=== PATIENT | female | born 1990 | race Two or more races ===

== ENCOUNTER → 2017-09-01 | Outpatient (CLI) | payer MEDICAID ==
--- NOTE | 2017-09-01 13:28 | RADIOLOGY REPORT (SQ) ---
EXAM DESCRIPTION: LUMBAR SPINE COMPLETE COMPLETED DATE/TIME: 09/01/2017 10:03 am REASON FOR STUDY: LOW BACK PAIN M54.5 LOW BACK PAIN COMPARISON: None. NUMBER OF VIEWS: Five views including obliques. TECHNIQUE: AP, lateral, oblique, and sacral radiographic images acquired of the lumbar spine. LIMITATIONS: None. FINDINGS: MINERALIZATION: Normal. SEGMENTATION: Normal. No transitional anatomy. ALIGNMENT: Normal. VERTEBRAE: Maintained height. No fracture or worrisome bone lesion. DISCS: Preserved height. No significant osteophytes or end plate irregularity. POSTERIOR ELEMENTS: Pedicles and facets are intact. No pars defect or posterior arch defects. HARDWARE: None in the spine. PARASPINAL SOFT TISSUES: Normal. PELVIS: Intact as visualized. No fractures or worrisome bone lesions. SI joints intact. OTHER: No other significant finding. IMPRESSION: NORMAL 5 VIEW LUMBAR SPINE. TECHNICAL DOCUMENTATION: JOB ID: [id number] [employer]- All Rights Reserved Reading location - IP/workstation name: [email or web address]
== END ==
LOC: OD 09:49
PROVIDERS: ATTEND Physician Assistant
DX: M54.5 Low back pain (principal)
CPT/HCPCS: 72110

== ENCOUNTER → 2020-03-24 | Outpatient (CLI) | payer SELFPAY ==
--- NOTE | 2020-03-24 14:43 | RADIOLOGY REPORT (SQ) ---
EXAM DESCRIPTION: U/S OB 14+ TRNABD 1GES W/O DOP IMAGES COMPLETED DATE/TIME: 03/24/2020 2:32 pm REASON FOR STUDY: Z34.83 ENCOUNTER FOR SUPRVSN OF NORMAL , THIRD TRIMESTER Z34.83 ENCOUNTE R FOR SUPRVSN OF NORMAL , THIRD TRIM COMPARISON: 2014 TECHNIQUE: Static and Dynamic grayscale imaging performed of gravid uterus using transabdominal appr oach. Additional selected color Doppler and spectral images recorded. All stored on PACS. LIMITATIONS: Limited anatomical survey. FINDINGS: FETUSES SEEN:1 EGA: 38 weeks 5 days Calculated using BPD,FL,HC,AC documented on images. No discrepancy with clinica l dates. ROBBIN: 04/02/2020 EFW: 7 lb 13 oz PERCENTILE: 61st SHIRA: 13.4 cm PLACENTA: Fundal grade 1 PRESENTATION: Cephalic. ANATOMY: HEART RATE: 145 beats per minute. FOUR CHAMBER HEART: Visualized. THREE VESSEL CORD: Yes. CORD INSERTION: Not seen. KIDNEYS AND BLADDER: Visualized. Appear normal. STOMACH: Visualized. Appears normal. SPINE: Normal as visualized. BRAIN AND LATERAL VENTRICLES: Poorly seen. OTHER: No other significant finding. MATERNAL ADNEXA: Maternal ovaries not visualized. CERVICAL LENGTH: 2.6 cm. Closed. OTHER: No other significant finding. IMPRESSION: LIVING INTRAUTERINE . ESTIMATED GESTATIONAL AGE 38 weeks 5 days NO VISUALIZED ANOMALIES. Trimester of : Third trimester - 28 weeks to delivery. TECHNICAL DOCUMENTATION: JOB ID: [id number] 2010 [employer]- All Rights Reserved Reading location - IP/workstation name: [email or web address]
== END ==
LOC: RAD 13:43
PROVIDERS: ATTEND Midwife
DX: Z34.83 Encounter for supervision of other normal pregnancy, third trimester (principal); Z3A.38 38 weeks gestation of pregnancy
CPT/HCPCS: 76805

== ENCOUNTER 2020-04-05 08:02 | Inpatient (IN) | payer MEDICAID ==
[2020-04-05] MEDS ORDERED: RINGERS SOLUTION,LACTATED 1,000 ML IV PRN (08:49)
[2020-04-05] MEDS ORDERED: RINGERS SOLUTION,LACTATED 1,000 ML IV ONE (08:49)
[2020-04-05] MEDS ORDERED: OXYTOCIN/0.9 % SODIUM CHLORIDE 30 UNIT/500 ML RTUINJ IV PRN ×2 (08:52→23:14)
[2020-04-05] MEDS ORDERED: LIDOCAINE 1% INJ-PF (10 MG/ML) 30 ML SDV ONE (09:14)
[2020-04-05] MEDS ORDERED: MISOPROSTOL 0.2 MG TABLET ONE (09:14)
[2020-04-05] MEDS ORDERED: OXYTOCIN/0.9 % SODIUM CHLORIDE 30 UNIT/500 ML RTUINJ ONE (09:14)
[2020-04-05] MEDS ORDERED: OXYTOCIN 10 UNIT/ML VIAL ONE (09:14)
[2020-04-05 09:18] LABS: ABSOLUTE EOSINOPHILS # (AUTO) 0.2 10^3/uL (0.0-0.6); ABSOLUTE LYMPHOCYTES (AUTO) 2.1 10^3/uL (0.5-4.7); ABSOLUTE MONOCYTES (AUTO) 0.4 10^3/uL (0.1-1.4); ABSOLUTE NEUT (AUTO) 5.4 10^3/uL (1.7-8.2); BASOPHILS % (AUTO) 0.4 % (0-2); EOSINOPHILS % (AUTO) 1.9 % (0-6); HEMATOCRIT 34.7 % (36.0-47.0); HEMOGLOBIN 12.3 g/dL (12.0-15.5); LYMPHOCYTES % (AUTO) 25.8 % (13-45); MEAN CORPUSCULAR HEMOGLOBIN 30.7 pg (27.0-33.4); MEAN CORPUSCULAR HGB CONC 35.4 g/dL (32.0-36.0); MEAN CORPUSCULAR VOLUME 87 fl (80-97); MONOCYTES % (AUTO) 5.3 % (3-13); PLATELET COUNT 249 10^3/uL (150-450); RED BLOOD COUNT 4.01 10^6/uL (3.72-5.28); RED CELL DISTRIBUTION WIDTH 14.2 % (11.5-14.0); SEGMENTED NEUTROPHILS % (AUTO) 66.6 % (42-78); TOTAL CELLS COUNTED % (AUTO) 100 %; WHITE BLOOD COUNT 8.1 10^3/uL (4.0-10.5)
[2020-04-05 09:23] LABS: APPEARANCE,URINE CLOUDY; BILIRUBIN,URINE NEGATIVE (NEGATIVE); COLOR,URINE AMBER; GLUCOSE, URINE NEGATIVE (NEGATIVE); KETONES,URINE TRACE mg/dL (NEGATIVE); LEUKOCYTE ESTERASE,URINE LARGE (NEGATIVE); NITRITE,URINE NEGATIVE (NEGATIVE); PROTEIN,URINE 30 mg/dL (NEGATIVE)
--- NOTE | 2020-04-05 09:24 | Admission Physical ---
Datetime Report Generated by CPN: 04/05/2020 09:24 CURRENT ADMISSION Indication for Induction: Post Dates Admit Impression : Postterm, Intrauterine ; No Active Labor Admit Plan: Admit to Unit; Initiate Labor Induction Protocol ALLERGIES Medication Allergies: No Medication Allergies: No Known Allergies (04/05/2020) Latex: No Latex Allergies OBSTETRICAL HISTORY : 3 Para: 1 Term: 1 : 0 SAB: 0 IAB: 1 Ectopic: 0 Livin Cesareans: 0 VBACs: 0 Multiple Births: 0 Gestational Diabetes: No Rh Sensitization: No Incompetent Cervix: No MAXIMINO: No Infertility: No ART Treatment: No Uterine Anomaly: No IUGR: No Hx Previous C/S: No Macrosomia: No Hx Loss/Stillborn: No PIH: No Hx : No Placenta Previa/Abruption: No Depression/PP Depression: No PTL/PROM: No Post Hemorrhage: Yes Current Procedures: Ultrasound Obstetrical History Comments: G1- Induced 2004 G2- , PPH with retained placenta, Girl 2015 G3- Current SEE RECORDS Alcohol: No Marijuana : No Cocaine: No Other Illicit Drugs: No Cigarettes: Never Smoker. [id number] MEDICAL HISTORY Diabetes: No Blood Transfusion: Yes Pulmonary Disease (Asthma, TB): No Breast Disease: No Hypertension: No Machine Fixer Surgery: No Heart Disease: No Hosp/Surgery: Yes Autoimmune Disorder: No Anesthetic Complications: No Kidney Disease: No Abnormal Pap Smear: No Neuro/Epilepsy: No Psychiatric Disorders: No Other Medical Diseases: No Hepatitis/Liver Disease: No Significant Family History: No Varicosities/Phlebitis: No Trauma/Violence : No Thyroid Dysfunction: No Medical History Comments: HX of blood transfusion with PPH INFECTIOUS HISTORY Gonorrhea: No Genital Herpes: No Chlamydia: No Tuberculosis: No Syphilis: No Hepatitis: No HIV/AIDS Exposure: No Rash or Viral Illness: No HPV: No PHYSICAL EXAM General: Normal HEENT: Normal Neurologic: Normal Thyroid: Normal Heart: Normal Lungs: Normal Breast: Normal Back: Normal Abdomen: Normal Genitourinary Exam: Normal Extremities: Normal DTRs: Normal Pelvic Type: Adequate Vital Signs: Reviewed MEMBRANES Membranes: Intact FETUS A Monitoring: External US FHR- Baseline: 140 Variability: Moderate 6-25bpm Accelerations: 15X15 Decelerations: None FHR Category: Category I Admit Comment: at 41 wks admitted this morning for IOL. Pt doing well, no complaints. States was 1-2 [facility] Plan IV Pitocin, then AROM w/ regular contraction pattern. Pt plans for natural labor w/out epidural. GBS negative. Baby feels Vtx via Leap[place]. EFW 8 pounds. Attending MD is Dr Pérez today, agrees w/ plan of care PLANS FOR LABOR AND DELIVERY Labor and Delivery: None Pain Management: None Feeding Preference: Breast Benefit of Breast Feed Discussed: Yes Circumcision: Yes INFORMED CONSENT Assignment: Elisabeth Pérez MD Signature: with User ID: Ryan : with User ID: Ryan
[2020-04-05 09:47] LABS: URINE AMPHETAMINES SCREEN NEGATIVE; URINE BARBITURATES SCREEN NEGATIVE; URINE BENZODIAZEPINES SCREEN NEGATIVE; URINE COCAINE SCREEN NEGATIVE; URINE MARIJUANA (THC) SCREEN NEGATIVE; URINE METHADONE SCREEN NEGATIVE; URINE PHENCYCLIDINE SCREEN NEGATIVE
--- NOTE | 2020-04-05 14:37 | L&D Progress Notes ---
PROGRESS NOTES Datetime Report Generated by CPN: 04/05/2020 14:37 PROGRESS NOTE Impression: Normal Progression of Labor Procedures: Artificial ROM; Sterile Vag Exam Plan: Continue Present Management; Induction Vital Signs : Reviewed; Within Normal Limits Comment: Pt doing well, Pitocin infusing. VE 3/70/-1, AROM w/ clear fluid, scantly bloodtinged. Pt may have an epidural if she desires. Position changes encouraged. Attending MD is Dr Pérez, updated on pt status LAST VAGINAL EXAM-NURSING Nursing Exam Dilitation: 3.0 Nursing Exam Effacement: 70 Nursing Exam Station: -1 MEMBRANES Membranes: Ruptured Amniotic Fluid Color: Clear FETUS A FHR - Baseline: 140 Monitoring: External US Variability: Moderate 6-25bpm Accelerations: 15X15 Decelerations: None FHR Category: Category I SIGNATURE SIGNATURE: [id number];13,[id number] Assignment: Elisabeth Pérez MD Signature: with User ID: [email or web address] : with User ID: Ryan
[2020-04-05] MEDS ORDERED: PROMETHAZINE HCL INJ 25 MG/1 ML VIAL ONE (18:25)
[2020-04-05] MEDS ORDERED: NALBUPHINE HCL INJ 10 MG/1 ML AMPULE ONE (18:25)
[2020-04-05] MEDS ORDERED: NALBUPHINE HCL INJ 10 MG/1 ML AMPULE INJ ONE (18:30)
[2020-04-05] MEDS ORDERED: PROMETHAZINE HCL INJ 25 MG/1 ML VIAL IV ONE (18:30)
[2020-04-05] MEDS ORDERED: PROMETHAZINE HCL 25 MG TABLET PO PRN (23:14)
[2020-04-05] MEDS ORDERED: BENZOCAINE/MENTHOL AEROSOL SPRAY 56 ML TOP PRN (23:14)
[2020-04-05] MEDS ORDERED: DIBUCAINE 1% OINTMENT 28 GM TP PRN (23:14)
[2020-04-05] MEDS ORDERED: MEASLES,MUMPS&RUBELLA VACC/PF 0.5 ML VIAL SUBCUT PRN (23:14)
[2020-04-05] MEDS ORDERED: GLYCERIN/WITCH HAZEL LEAF 1 EACH MED..WIPE TP PRN (23:14)
[2020-04-05] MEDS ORDERED: ZOLPIDEM TARTRATE 5 MG TABLET PO PRN (23:14)
[2020-04-05] MEDS ORDERED: NA PHOS,M-B/NA PHOS,DI-BA (ADULT) 133 ML ENEMA PR PRN (23:14)
[2020-04-05] MEDS ORDERED: DIPH/PERTUSS(ACELL)/TETANUS VAC/PF 0.5 ML SYR (>=10YO) IM PRN (23:14)
[2020-04-05] MEDS ORDERED: MAGNESIUM HYDROXIDE SUSP 30 ML UDCUP PO PRN (23:14)
[2020-04-05] MEDS ORDERED: PROMETHAZINE HCL INJ 25 MG/1 ML VIAL IV PRN (23:14)
[2020-04-05] MEDS ORDERED: ACETAMINOPHEN 325 MG TABLET PO PRN (23:14)
[2020-04-05] MEDS ORDERED: ACETAMINOPHEN WITH CODEINE #3 TABLET PO PRN ×2 (23:14)
[2020-04-05] MEDS ORDERED: PROMETHAZINE HCL 25 MG SUPP.RECT PR PRN (23:14)
[2020-04-05] MEDS ORDERED: DIPHENHYDRAMINE HCL 25 MG CAPSULE PO PRN (23:14)
[2020-04-05] MEDS ORDERED: PSEUDOEPHEDRINE HCL 30 MG TABLET PO PRN (23:14)
[2020-04-05] MEDS ORDERED: ACETAMINOPHEN 650 MG SUPP.RECT PR PRN (23:14)
[2020-04-05] MEDS ORDERED: ACETAMINOPHEN WITH CODEINE #3 TABLET ONE (23:54)
--- NOTE | 2020-04-06 00:40 | Birth Certificate Data ---
Cert Data Datetime Report Generated by PATRIC: 04/06/2020 00:40 CERTIFICATE DATA 47a. Care: Yes (04/05/2020 08:42:Teresita Pineda RN) 47b. Date of First Visit: 09/29/2019 00:00 (04/05/2020 08:42:Teresita Pineda RN) 47c. Date of Last Visit: 04/03/2020 00:00 (04/05/2020 08:42:Teresita Pineda RN) 47d. Number of Visits: 11 (04/05/2020 08:42:Teresita Pineda RN) 48a. Number of Prev Live Births: 1 (04/05/2020 08:42:Teresita Pineda RN) 48b. Now Livin (04/05/2020 08:42:Teresita Pineda RN) 48c. Live Births Now : 0 (04/05/2020 08:42:QS system process) 48d. Date of Last Live : 06/30/2015 00:00 (04/05/2020 08:42:Teresita Pineda RN) 48e. Losses: 1 (04/05/2020 08:42:Teresita Pineda RN) 48f. Date of Last Preg Loss: 11/28/2004 00:00 (04/05/2020 08:42:Teresita Pineda RN) RISK FACTORS IN THIS 49a. Diabetes: No (04/05/2020 08:42:Teresita Pineda RN) 49b. Hypertension: No (04/05/2020 08:42:Teresita Pineda RN) 49c. Previous Births: 0 (04/05/2020 08:42:Teresita Pineda RN) 49d. Stillborns: No (04/05/2020 08:42:Teresita Pineda RN) 49d. IUGR: No (04/05/2020 08:42:Teresita Pineda RN) 49e. Infertility Treatment: No (04/05/2020 08:42:Teresita Pineda RN) 49f. Previous Cesareans: 0 (04/05/2020 08:42:Teresita Pineda RN) Mother's Height 50b. Height Inches: 62 (04/05/2020 13:51:QS system process) Mother's Weight 51a. Pre- Weight (lbs): 148 (04/05/2020 08:42:Teresita Pineda RN) 51b. Weight at Delivery (lbs): 172 (04/05/2020 13:51:QS system process) 52. Dt Last Normal Menses Began: 06/26/2019 00:00 (04/05/2020 08:42:Teresita Pineda RN) Infections Present/Treated 53a. Gonorrhea: No (04/05/2020 08:42:Teresita Pineda RN) Results this Hospital Visit : Negative (04/05/2020 08:42:Smiley Mckeon RN) 53b. Syphilis: No (04/05/2020 08:42:Teresita Pineda RN) 53c. Chlamydia: No (04/05/2020 08:42:Teresita Pineda RN) Results this Hospital Visit: Negative (Annotations: Data stored by [facility] on behalf of user) (04/05/2020 08:42:Smiley Mckeon RN) 53d. Hepatitis B: No (04/05/2020 08:42:Teresita Pineda RN) Results this Hospital Visit: Negative (04/05/2020 08:42:Teresita Pineda RN) 53e. Hepatitis C: Negative (04/05/2020 08:42:Teresita Pineda RN) 53h. Mother Tested for HBsAG: Yes (04/05/2020 08:42:Teresita Pineda RN) 53i. Date Tested: 03/22/2020 00:00 (04/05/2020 08:42:Teresita Pineda RN) 53j. Test Result: Negative (04/05/2020 08:42:Teresita Pineda RN) Obstetric Procedures 54a, b, c. Obstetric Procedures: Ultrasound (04/05/2020 08:42:Teresita Pineda RN) Cigarette Smoking Cigarette Smoking: Never Smoker. [id number] (04/05/2020 08:42:Teresita Pineda RN) 55a. 3 Months Before Preg - Ci (04/05/2020 08:42:Teresita Pineda RN) 55a. Packs: 0 (04/05/2020 08:42:Teresita Pineda RN) 55b. 1st Trimester of Preg- Ci (04/05/2020 08:42:Teresita Pineda RN) 55b. Packs: 0 (04/05/2020 08:42:Teresita Pineda RN) 55c. 2nd Trimester of Preg- Ci (04/05/2020 08:42:Teresita Pineda RN) 55c. Packs: 0 (04/05/2020 08:42:eTresita Pineda RN) 55d. 3rd Trimester of Preg- Ci (04/05/2020 08:42:Teresita Pineda RN) 55d. Packs: 0 (04/05/2020 08:42:Teresita Pineda RN) Onset of Labor 56a. PROM >12 Hrs: 8.57 (04/05/2020 08:42:QS system process) 56b. Precipitous Labor <3 Hrs: 13 (04/05/2020 08:42:QS system process) 56c. Prolonged Labor > 20 Hrs: 13 (04/05/2020 08:42:QS system process) 57a. Induction of Labor: Induction (04/05/2020 08:42:Lisa Valenzeula RN) 57c. Non-Vertex Presentation A: Vertex (04/05/2020 08:42:Peyton Hurd RN) 57d. Steroids - Lung Mat: None (04/05/2020 08:42:Lisa Valenzuela RN) 57d. Steroids - Lung Mat: Not Applicable (04/05/2020 08:42:Lisa Valenzuela RN) 57f. Mat [place] or Temp >100.4: 98.6 (04/05/2020 08:42:Lisa Valenzuela RN) 57g. Moderate/Heavy Meconium: Clear (04/05/2020 14:29:Teresita Pineda RN) 57h. Intolerance of Labor: N/A (04/05/2020 08:42:Lisa Valenzuela RN) : N/A (04/05/2020 08:42:Lisa Valenzuela RN) 57i. Epidural/Spinal Anesthesia: None (04/05/2020 08:42:Lisa Valenzuela RN) Method of Delivery 58a. Forceps - Unsuccessful A: N/A (04/05/2020 08:42:Peyton Hurd RN) 58b. Vacuum - Unsuccessful A: N/A (04/05/2020 08:42:Peyton Hurd RN) 58c. Presentation at 58c. Presentation at - A : Vertex (04/05/2020 08:42:Peyton Hurd RN) 58c. Presentation at - A : N/A (04/05/2020 08:42:Lisa Valenzuela RN) 58c. Presentation at - A : Cephalic (04/05/2020 18:17:Teresita Pineda RN) Final Route and Method of Del 58d. Baby A Route/Delivery: Vaginal (04/05/2020 23:03:Lisa Valenzuela RN) 58e. Trial of Labor Attempted: No (04/05/2020 08:42:Lisa Valenzuela RN) 58e. Trial of Labor Attempted A: N/A (04/05/2020 08:42:Lisa Valenzuela RN) 58e. Trial of Labor Attempted B: N/A (04/05/2020 08:42:Lisa Valenzuela RN) Maternal Morbidity 59b. 3rd or 4th Degree Lacs: None (04/05/2020 08:42:[facility] Birthweight Baby A: 3612 (04/05/2020 08:42:Lisa Valenzuela RN) 60a. Pounds : 7 (04/05/2020 08:42:QS system process) 60b. Ounces: 15 (04/05/2020 08:42:QS system process) 61. GA at Delivery Baby A: 40.6 (04/05/2020 08:42:Lisa Valenzuela RN) : Full Term- 39- 40.6 Weeks (04/05/2020 08:42:QS system process) 62a. 5 Minute Baby A: 9 (04/05/2020 08:42:QS system process)
--- NOTE | 2020-04-06 00:40 | Delivery Summary ---
Del Sum A-C Datetime Report Generated by CPN: 04/06/2020 00:40 DELIVERY PERSONNEL DELIVERY PERSONNEL: [id number] Delivery Doctor:: Elisabeth Pérez MD Labor and Delivery Nurse:: Lisa Valenzuela RN Nursery Nurse:: Cecille Alexander RN Binder Fixer/INSPECTOR MACHINE CUT GLASS: Harini Ross, ST MATERNAL INFORMATION Delivery Anesthesia: None Medications After Delivery: Pitocin 30 Units in 500ml NS/D5W Estimated Blood Loss (ml): 200 Maternal Complications: None LABOR SUMMARY EDC: 03/30/2020 00:00 No. Babies in Womb: 1 Attempted: No Labor Anesthesia: None LABOR INFORMATION Reason for Induction: Post Dates Onset of Labor: 04/05/2020 09:28 Complete Dilatation: 04/05/2020 22:49 Oxytocin: Induction Group B Beta Strep: negative Antibiotics # of Doses: n/a Name of Antibiotic Given: n/a Steroids Given: None Reason Steroids Not Administered: Not Applicable MEMBRANES Membranes Rupture Method: Artificial Rupture of Membranes: 04/05/2020 14:29 Length of Rupture (hr): 8.57 Amniotic Fluid Color: Clear Amniotic Fluid Amount: Scant STAGES OF LABOR Stage 1 hr: 13 Stage 1 min: 21 Stage 2 hr: 0 Stage 2 min: 14 Stage 3 hr: 0 Stage 3 min: 4 Total Time in Labor hr: 13 Total Time in Labor min: 39 VAGINAL DELIVERY Episiotomy: None Laceration #1: None Laceration Extension #1: N/A Laceration Repair: Not Applicable Sponge Count Correct: N/A Sharps Count Correct: N/A CSECTION DELIVERY Primary Indication: N/A Secondary Indication: N/A CSection Urgency: N/A CSection Incidence: N/A Labor: N/A Elective: N/A CSection Incision: N/A Uterine Closure: Double-layer closure BABY A INFORMATION Infant Delivery Date/Time: 04/05/2020 23:03 Method of Delivery: Vaginal Nurse Controlled Delivery: No Born in Route : No : N/A Forceps: N/A Vacuum Extraction: N/A Shoulder Dystocia : No PRESENTATION/POSITION BABY A Presentation: Cephalic Cephalic Presentation: Vertex Vertex Position: Right Occipital Anterior Breech Presentation: N/A PLACENTA INFORMATION BABY A Placenta Delivery Time : 04/05/2020 23:07 Placenta Method of Delivery: Spontaneous Placenta Status: Delivered SCORES BABY A Heart Rate 1 min: >100 bpm Resp Effort 1 min: Good Cry Reflex Irritability 1 min: Cough or Sneeze or Pulls Away Muscle Tone 1 min: Active Motion Color 1 min: Blue/Pale Resuscitation Effort 1 min: Tactile Stimulation SCORE 1 MIN: 8 Heart Rate 5 min: >100 bpm Resp Effort 5 min: Good Cry Reflex Irritability 5 min: Cough or Sneeze or Pulls Away Muscle Tone 5 min: Active Motion Color 5 min: Body [place], Extremities Blue Resuscitation Effort 5 min: Tactile Stimulation SCORE 5 MIN: 9 INFANT INFORMATION BABY A Gestational Age at Delivery: 40.6 Gestational Status: Full Term- 39- 40.6 Weeks Outcome : Liveborn Condition : Stable Infant Sex: Male IDENTIFICATION BABY A Verification Date/Time: 04/05/2020 23:24 ID Band Number: [id number] Mother's Name Verified: Yes RN Verifying : Clem Valenzuela RN/Jean Toth RN WEIGHT/LENGTH BABY A Infant Birthweight (gm): 3612 Infant Weight (lb): 7 Weight (oz): 15 Infant Length (in): 20.50 Length (cm): 52.07 CORD INFORMATION BABY A No. Cord Vessels: 3 Nuchal Cord : N/A Cord Blood Taken: Yes-For Eval (Mom's Blood Type - or O+) Infant Suction: None ASSESSMENT BABY A Complications: None Physical Findings at Delivery: Other Physical Findings- Other: see nursery assessment Respirations: Appears Normal Skin to Skin: Yes Skin to Skin Time (min): 60 Arc Trimmer/ALS Called : No Infant Care By: Cecille Alexander RN Transferred To: Remains with Mother BABY B INFORMATION : N/A SIGNATURES Signature: with User ID: [email or web address]
[2020-04-06] MEDS ORDERED: IBUPROFEN 800 MG TABLET ONE (00:49)
[2020-04-06] MEDS: FAMOTIDINE 20 MG TABLET PO SCH ×3 (04:11→21:22)
[2020-04-06] MEDS: IBUPROFEN 800 MG TABLET PO SCH ×3 (06:31→21:22)
[2020-04-06 07:34] LABS: HEMATOCRIT 31.6 % (36.0-47.0); HEMOGLOBIN 11.1 g/dL (12.0-15.5); MEAN CORPUSCULAR HEMOGLOBIN 30.5 pg (27.0-33.4); MEAN CORPUSCULAR HGB CONC 35.1 g/dL (32.0-36.0); MEAN CORPUSCULAR VOLUME 87 fl (80-97); PLATELET COUNT 236 10^3/uL (150-450); RED BLOOD COUNT 3.63 10^6/uL (3.72-5.28); RED CELL DISTRIBUTION WIDTH 14.6 % (11.5-14.0); WHITE BLOOD COUNT 14.3 10^3/uL (4.0-10.5)
[2020-04-06 09:17] LABS: HEPATITS B SURFACE ANTIGEN Negative (Negative)
--- NOTE | 2020-04-06 09:42 | PDOC PROGRESS REPORT ---
Subjective-OB Progress Note for:: 04/06/20 Physical Exam (OB) Vital Signs: Temp Pulse Resp BP Pulse Ox 98.2 F 87 17 132/77 H 100 04/06/20 08:12 04/06/20 08:12 04/06/20 08:12 04/06/20 08:12 04/06/20 08:12 Intake & Output 04/05/20 04/06/20 04/07/20 06:59 06:59 06:59 Weight 77.5 kg - PIH/Pre-Eclampsia Clonus: Negative - Maternal Morbidity 59. Maternal Morbidity (serious complications experinced by the mother associated with labor and delivery: None of the above - Lochia Lochia Amount: Scant < 10 ml Lochia Color: Rubra/Red - Abdomen Description: Soft Hernia Present: No Bowel Sounds: Normoactive Flatus Presence: Present Stool: No Fundal Description: Firm, Midline Fundal Height: u/u - u/2 Objective-Diagnostic Laboratory: 04/06/20 06:24 04/05/20 04/06/20 08:35 06:24 WBC 14.3 H RBC 3.63 L Hgb 11.1 L Hct 31.6 L MCV 87 MCH 30.5 MCHC 35.1 RDW 14.6 H Plt Count 236 Blood Type O POSITIVE Antibody Screen NEGATIVE Assessment and Plan(PN) - Time Spent with Patient Time with patient: 15-25 minutes Medications reviewed and adjusted accordingly: Yes - Disposition Anticipated Discharge Disposition: Home, Self Care Anticipated Discharge Timeframe: within 36 hours
[2020-04-06] MEDS: DOCUSATE SODIUM 100 MG CAPSULE PO SCH ×2 (12:36→18:47)
[2020-04-06] MEDS: PRENATAL VITAMIN W DHA CAPSULE PO SCH (12:36)
[2020-04-06] MEDS: FERROUS SULFATE 325 MG TABLET PO SCH ×2 (12:36→18:47)
[2020-04-06] MEDS: SENNOSIDES/DOCUSATE 8.6-50 MG 1 EACH TABLET PO SCH (12:36)
[2020-04-07] MEDS: IBUPROFEN 800 MG TABLET PO SCH (06:30)
--- NOTE | 2020-04-07 10:52 | PDOC DISCHARGE SUMMARY ---
Impression - Admit/DC Date/PCP Admission Date/Primary Care Provider: 04/05/20 08:02 JENY MONTGOMERY CNM Discharge Date: 04/07/20 - Discharge Diagnosis (1) Encounter for planned induction of labor Is this a current diagnosis for this admission?: Yes (2) Delivery normal Is this a current diagnosis for this admission?: Yes (3) Normal course Is this a current diagnosis for this admission?: Yes - Additional Information Resuscitation Status: Full Code Discharge Diet: Regular Discharge Activity: Balance Activity w/Rest, Pelvic Rest Referrals: JENY MONTGOMERY CNM [Primary Care Provider] - Prescriptions: Ibuprofen [Motrin 800 mg Tablet] 800 mg PO Q8HP PRN #60 tablet PRN Reason: Home Medications: Pnv 102/Iron/Folate 1/Dss/Dha [Vitafol Fe+ Docusate Combo Pck] 1 each PO DAILY 04/05/20 Ibuprofen [Motrin 800 mg Tablet] 800 mg PO Q8HP PRN #60 tablet 04/07/20 HPI Gestational Age: 40.6 Reason(s) for Admission: Induction of Labor Procedures: NST Intrapartum Procedure(s): Spontaneous Vaginal Delivery Hospital Course 59. Maternal Morbidity (serious complications experinced by the mother associated with labor and delivery: None of the above Results Laboratory Results: WBC 14.3 10^3/uL (4.0-10.5) H 04/06/20 06:24 RBC 3.63 10^6/uL (3.72-5.28) L 04/06/20 06:24 Hgb 11.1 g/dL (12.0-15.5) L 04/06/20 06:24 Hct 31.6 % (36.0-47.0) L 04/06/20 06:24 MCV 87 fl (80-97) 04/06/20 06:24 MCH 30.5 pg (27.0-33.4) 04/06/20 06:24 MCHC 35.1 g/dL (32.0-36.0) 04/06/20 06:24 RDW 14.6 % (11.5-14.0) H 04/06/20 06:24 Plt Count 236 10^3/uL (150-450) 04/06/20 06:24 Lymph % (Auto) 25.8 % (13-45) 04/05/20 08:35 [place] % (Auto) 5.3 % (3-13) 04/05/20 08:35 Eos % (Auto) 1.9 % (0-6) 04/05/20 08:35 Baso % (Auto) 0.4 % (0-2) 04/05/20 08:35 Absolute Neuts (auto) 5.4 10^3/uL (1.7-8.2) 04/05/20 08:35 Absolute Lymphs (auto) 2.1 10^3/uL (0.5-4.7) 04/05/20 08:35 Absolute Monos (auto) 0.4 10^3/uL (0.1-1.4) 04/05/20 08:35 Absolute Eos (auto) 0.2 10^3/uL (0.0-0.6) 04/05/20 08:35 Absolute Basos (auto) 0.0 10^3/uL (0.0-0.2) 04/05/20 08:35 Seg Neutrophils % 66.6 % (42-78) 04/05/20 08:35 Urine Color BRUCE 04/05/20 08:35 Urine Appearance CLOUDY 04/05/20 08:35 Urine pH 5.0 (5.0-9.0) 04/05/20 08:35 Ur Specific [place] 1.030 04/05/20 08:35 Urine Protein 30 mg/dL (NEGATIVE) H 04/05/20 08:35 Urine Glucose (UA) NEGATIVE mg/dL (NEGATIVE) 04/05/20 08:35 Urine Ketones TRACE mg/dL (NEGATIVE) H 04/05/20 08:35 Urine Blood NEGATIVE (NEGATIVE) 04/05/20 08:35 Urine Nitrite NEGATIVE (NEGATIVE) 04/05/20 08:35 Urine Bilirubin NEGATIVE (NEGATIVE) 04/05/20 08:35 Urine Urobilinogen 2.0 mg/dL (<2.0) H 04/05/20 08:35 Ur Leukocyte Esterase LARGE (NEGATIVE) H 04/05/20 08:35 Urine WBC (Auto) 16 /HPF 04/05/20 08:35 Urine RBC (Auto) 3 /HPF 04/05/20 08:35 Squamous Epi Cells Auto 39 /HPF 04/05/20 08:35 U Non-Squamous Epis Auto 1 /HPF 04/05/20 08:35 Urine Mucus (Auto) FEW /LPF 04/05/20 08:35 Urine Ascorbic Acid NEGATIVE (NEGATIVE) 04/05/20 08:35 Urine Opiates Screen NEGATIVE 04/05/20 08:35 Urine Methadone Screen NEGATIVE 04/05/20 08:35 Ur Barbiturates Screen NEGATIVE 04/05/20 08:35 Ur Phencyclidine Scrn NEGATIVE 04/05/20 08:35 Ur Amphetamines Screen NEGATIVE 04/05/20 08:35 U Benzodiazepines Scrn NEGATIVE 04/05/20 08:35 Urine Cocaine Screen NEGATIVE 04/05/20 08:35 U Marijuana (THC) Screen NEGATIVE 04/05/20 08:35 RPR NONREACTIVE (NONREACTIVE) 04/05/20 08:35 Hep Bs Antigen Negative (Negative) 04/05/20 08:35 Rubella IgG Antibody 29.80 IU/mL 04/05/20 08:35 Rubella IgG Ab Interp POSITIVE 04/05/20 08:35 Blood Type O POSITIVE 04/05/20 08:35 Antibody Screen NEGATIVE 04/05/20 08:35 Plan Plan of Treatment: f/u at [facility] 4 wks Time Spent: Less than 30 Minutes
[2020-04-07] MEDS: PRENATAL VITAMIN W DHA CAPSULE PO SCH (10:53)
[2020-04-07] MEDS: DOCUSATE SODIUM 100 MG CAPSULE PO SCH (10:53)
[2020-04-07] MEDS: FAMOTIDINE 20 MG TABLET PO SCH (10:53)
[2020-04-07] MEDS: SENNOSIDES/DOCUSATE 8.6-50 MG 1 EACH TABLET PO SCH (10:53)
[2020-04-07] MEDS: FERROUS SULFATE 325 MG TABLET PO SCH (10:53)
[2020-04-07 12:08] VITALS: BP 125/62
== END 2020-04-07 12:30 | disposition home or self-care (01) | DRG 807 ==
LOC: LR 08:02 → 2S 04-06 02:20
PROVIDERS: ADMIT Obstetrics & Gynecology; ATTEND Obstetrics & Gynecology
PROC: 10E0XZZ Delivery of Products of Conception, External Approach (ICD-10-PCS; principal; 2020-04-05)
PROC: 10907ZC Drainage of Amniotic Fluid, Therapeutic from Products of Conception, Via Natural or Artificial Opening (ICD-10-PCS; 2020-04-05)
DX: O48.0 Post-term pregnancy (principal); Z37.0 Single live birth; Z3A.40 40 weeks gestation of pregnancy
CPT/HCPCS: 36415; 80307; 81001; 85025; 85027; 86592; 86762; 86850; 86900; 86901; 87340; J2300; J2550; J2590; J3490